=== PATIENT | male | born 1985 | race Caucasian/White ===

== ENCOUNTER 2023-06-16 00:05 | Emergency (ER) | payer OTHER ==
[~2023-06-16] VITALS: Ht 180.3 cm; Wt 111.4 kg
[~2023-06-16 00:05] MED LIST: GEMF600T89 PO; QUET300T2 PO
[2023-06-16 00:25] VITALS: BP 123/78; PULSE 101; RESP 18; TEMP 99.1
[2023-06-16] MEDS ORDERED: FLUT16SP NASAL (01:08)
[2023-06-16] MEDS ORDERED: ARIP15TA27 PO (01:13)
[2023-06-16] MEDS: ZIPRASIDONE MESYLATE 20 MG/VIAL IM ONE (01:22)
[2023-06-16] MEDS: ARIPiprazole 15 MG TABLET PO ONE (01:28)
[2023-06-16] MEDS: DiphenhydrAMINE HCL 25 MG CAPSULE PO ONE (02:09)
== END 2023-06-16 02:13 | disposition home or self-care (01) ==
LOC: EMS 00:06
DX: J30.9 Allergic rhinitis, unspecified (principal); F41.9 Anxiety disorder, unspecified; E78.00 Pure hypercholesterolemia, unspecified; F20.9 Schizophrenia, unspecified; F17.210 Nicotine dependence, cigarettes, uncomplicated
CPT/HCPCS: 99284; 96372; J3486

== ENCOUNTER 2023-07-01 07:13 | Emergency (ER) | payer OTHER ==
[~2023-07-01] VITALS: Ht 180.3 cm; Wt 111.8 kg
[~2023-07-01 07:13] MED LIST changes: +ARIP15TA27 PO; +FLUT16SP NASAL
[2023-07-01 07:26] VITALS: BP 125/77; PULSE 85; RESP 14; TEMP 98.6
[2023-07-01 07:36] LABS: COVID AG,FIA SOURCE NASAL SWAB
[2023-07-01] MEDS ORDERED: GUAIFDM PO (07:43)
[2023-07-01] MEDS ORDERED: BENZ-227 PO (07:43)
[2023-07-01] MEDS: GuaiFENesin/D-METHORPHAN [SUGAR-FREE] 200-20MG/10 ML SYRUP UDCUP PO ONE (07:47)
[2023-07-01 08:20] LABS: SARS-COV2 (COVID) ANTIGEN,FIA Negative (Negative)
[2023-07-01 08:25] LABS: INFLUENZA TYPE A NEGATIVE FOR TYPE A (NEGATIVE); INFLUENZA TYPE B NEGATIVE FOR TYPE B (NEGATIVE)
== END 2023-07-01 07:53 | disposition home or self-care (01) ==
LOC: EMS 07:13
DX: J30.9 Allergic rhinitis, unspecified (principal); F41.9 Anxiety disorder, unspecified; E78.00 Pure hypercholesterolemia, unspecified; F20.9 Schizophrenia, unspecified; F17.210 Nicotine dependence, cigarettes, uncomplicated; Z88.8 Allergy status to other drugs, medicaments and biological substances; Z20.822 Contact with and (suspected) exposure to COVID-19
CPT/HCPCS: 87804; 99283